=== PATIENT | male | born 1990 | race Caucasian/White ===

== ENCOUNTER 2020-08-17 00:58 | Emergency (ER) | payer SELFPAY ==
[~2020-08-17] VITALS: Ht 170.2 cm; Wt 108.0 kg
[2020-08-17 01:11] VITALS: BP 138/78; Ht 170.2 cm; Wt 108.0 kg
== END 2020-08-17 02:41 | disposition home or self-care (01) ==
LOC: ED 00:58
DX: F41.9 Anxiety disorder, unspecified (principal)

== ENCOUNTER 2020-08-22 01:25 | Emergency (ER) | payer MEDICAID ==
[~2020-08-22] VITALS: Ht 170.2 cm; Wt 108.9 kg
[2020-08-22 01:38] VITALS: Ht 170.2 cm; Wt 108.9 kg
[2020-08-22 01:57] VITALS: BP 133/79
== END 2020-08-22 02:40 | disposition home or self-care (01) ==
LOC: ED 01:25
DX: F41.9 Anxiety disorder, unspecified (principal)